=== PATIENT | male | born 1980 | race Caucasian/White ===

== ENCOUNTER 2019-05-04 06:11 | Emergency (ER) | payer BC, OTHER ==
[2019-05-04] MEDS ORDERED: ONDANSETRON 4 MG/2 ML VIAL ONE (06:59)
[2019-05-04] MEDS ORDERED: KETOROLAC 30 MG/ML INJ ONE (06:59)
[2019-05-04] MEDS ORDERED: NA CHLORIDE 0.9% 1,000 ML ONE (06:59)
[2019-05-04 07:01] LABS: Absolute Lymphocytes (CBC) 0.7 K/uL (0.7-4.9); Basophils % 0.3 % (0-1.3); Eosinophils % 0.5 % (0-4.4); Hematocrit 48.3 % (39.6-49.0); Lymphocytes % 4.8 % (15.3-44.8); MPV 8.2 fL (7.6-11.3); Monocytes % 5.2 % (3.3-12.3); RBC Red Blood Cell Count 6.19 M/uL (4.33-5.43)
[2019-05-04 07:13] LABS: Albumin 3.8 g/dL (3.4-5.0); Bilirubin Direct 0.1 mg/dL (0-0.2); Bilirubin Total 0.5 mg/dL (0.2-1.0); Protein, Total 8.1 g/dL (6.4-8.2)
[2019-05-04 08:06] LABS: Platelet Estimate ADEQ
[2019-05-04 08:07] LABS: Blood Morphology Comment NOT SEEN (NOT SEEN)
--- NOTE | 2019-05-04 08:19 | RAD REPORT ---
EXAM DESCRIPTION: CTAbdomen Pelvis W Contrast - 05/04/2019 7:52 am CLINICAL HISTORY: Abdominal pain. ABD PAIN COMPARISON: Abdomen Exam Limited dated 05/04/2019 TECHNIQUE: Biphasic CT imaging of the abdomen and pelvis was performed with 100 ml non-ionic IV cont rast. All CT scans are performed using dose optimization technique as appropriate and may include automated exposure control or mA/KV adjustment according to patient size. FINDINGS: The lung bases are clear. Postsurgical changes are present about the stomach. The liver, spleen, pancreas, adrenal glands and kidneys are within normal limits. No bowel obstruction, free air, free fluid or abscess. The appendix is normal. No evidence of signi ficant lymphadenopathy. No suspicious bony findings. IMPRESSION: No acute intra-abdominal or pelvic finding.
--- NOTE | 2019-05-04 08:25 | ER ---
Nurse's Notes [facility] Name: Eduardo Murcia Age: 38 yrs Sex: Male : 1980 Arrival Date: 05/04/2019 Time: 06:13 Bed 8 Private MD: Lui Harper Diagnosis: Upper abdominal pain, unspecified;Diarrhea, unspecified Presentation: 05/04 06:26 Presenting complaint: Patient states: epigastric pain since 2330 last night with N/D aa1 and chills. Transition of care: patient was not received from another setting of care. Onset of symptoms was May 03, 2019 at 23:30. Risk Assessment: Do you want to hurt yourself or someone else? Patient reports no desire to harm self or others. Initial Sepsis Screen: Does the patient meet any 2 criteria? HR > 90 bpm. Does the patient have a suspected source of infection? Yes: Acute abdominal pain. Care prior to arrival: None. 06:26 Method Of Arrival: Ambulatory aa1 06:26 Acuity: CANDELARIA 3 aa1 Triage Assessment: 06:31 General: Appears in no apparent distress. comfortable, Behavior is calm, cooperative, aa1 appropriate for age. Historical: - Allergies: 06:31 tramadol; aa1 - Home Meds: 06:31 None [Active]; aa1 - PMHx: 06:31 None; aa1 - PSHx: 06:31 gastric sleeve; hand sx; aa1 - Immunization history:: Flu vaccine is not up to date. - Social history:: Smoking status: Patient/guardian denies using tobacco. - Ebola Screening: : No symptoms or risks identified at this time. Screenin:30 Abuse screen: Denies threats or abuse. Nutritional screening: No deficits noted. tl2 Tuberculosis screening: No symptoms or risk factors identified. Fall Risk None identified. Assessment: 06:30 General: Appears in no apparent distress. uncomfortable. General: Reports chills for tl2 0-12 hours. Pain: Complains of pain in right upper quadrant and epigastric area. Neuro: Level of Consciousness is awake, alert, obeys commands, Oriented to person, place, time, situation. Cardiovascular: Denies chest pain. Respiratory: Airway is patent Respiratory effort is even, unlabored, Respiratory pattern is regular, symmetrical. GI: Abd is soft Abdomen is tender to palpation in right upper quadrant and left upper quadrant. : No signs and/or symptoms were reported regarding the genitourinary system. Derm: Skin is pink, warm \T\ dry. 07:36 Reassessment: Patient appears in no apparent distress at this time. Patient and/or hb family updated on plan of care and expected duration. Pain level reassessed. Patient is alert, oriented x 3, equal unlabored respirations, skin warm/dry/pink. Vital Signs: 06:31 BP 114 / 65; Pulse 107; Resp 20; Temp 98.6; Pulse Ox 100% on R/A; Weight 161.48 kg; tl2 Height 5 ft. 10 in. (177.80 cm); Pain 4/10; 07:36 BP 141 / 75; Pulse 85; Resp 17; Pulse Ox 97% on R/A; hb 08:30 BP 119 / 68; Pulse 80; Resp 18; Pulse Ox 98% on R/A; sg 06:31 Body Mass Index 51.08 (161.48 kg, 177.80 cm) tl2 ED Course: 06:13 Patient arrived in ED. am2 06:13 Lui Harper MD is Private Physician. am2 06:21 [facility] Land[facility]C [facility]. kb 06:21 Oracio Bermudez MD is Attending Physician. kb 06:28 Triage completed. aa1 06:30 Patient has correct armband on for positive identification. Bed in low position. Call tl2 light in reach. Side rails up X2. 06:34 Arm band placed on right wrist. aa1 06:42 Inserted saline lock: 22 gauge in right antecubital area, using aseptic technique. tl2 Blood collected. 06:42 Initial lab(s) drawn, by oh, sent to lab. tl2 07:03 US Abdomen Limited In Process Unspecified. EDMS 07:35 Latoya Thomas, RN is Primary Nurse. hb 07:52 CT Abd/Pelvis - IV Contrast Only In Process Unspecified. EDMS 08:35 No provider procedures requiring assistance completed. IV discontinued, intact, sg bleeding controlled, No redness/swelling at site. Pressure dressing applied. Administered Medications: 06:51 Drug: NS 0.9% 1000 ml Route: IV; Rate: 1000 ml; Site: right antecubital; tl2 06:52 Drug: Zofran 4 mg Route: IVP; Site: right antecubital; tl2 06:52 Drug: TORadol 30 mg Route: IVP; Site: right antecubital; tl2 Outcome: 08:22 Discharge ordered by . fab 08:35 Discharged to home ambulatory. sg 08:35 Condition: good 08:35 Discharge instructions given to patient, Instructed on discharge instructions, follow up and referral plans. medication usage, safety practices, Demonstrated understanding of instructions, follow-up care, medications, Prescriptions given X 2. 08:38 Patient left the ED. ss Signatures: Dispatcher [employer] EDMS Angelina Landin, OPERATIONS MGR-C OPERATIONS MGR-Ckb Michael Alcantar RN RN Lona Grimaldo RN RN aa1 Sharona Amor RN RN Latoya Thomas RN RN Jacinda Kumar RN RN tl2 Scarlett Corcoran am2 Corrections: (The following items were deleted from the chart) 06:42 06:31 BP ??? / 99; Pulse 132bpm; Resp 20bpm; Pulse Ox 100% RA; Temp 98.6F; 161.48 kg; tl2 Height 5 ft. 10 in.; BMI: 51.0; Pain 4/10; aa1
--- NOTE | 2019-05-04 08:25 | EDPHYS ---
Physician Documentation [facility] Name: Eduardo Murcia Age: 38 yrs Sex: Male : 1980 Arrival Date: 05/04/2019 Time: 06:13 Bed 8 Private MD: Lui Harper ED Physician Oracio Bermudez HPI: 05/04 06:33 This 38 yrs old Male presents to ER via Ambulatory with complaints of kb Abdominal Pain, CHILLS. 06:33 The patient presents with abdominal pain in the epigastric area. Onset: The kb symptoms/episode began/occurred last night, at 23:00. The symptoms radiate to abdomen. Associated signs and symptoms: Pertinent positives: diarrhea, nausea, Pertinent negatives: anorexia, blood in stools, chest pain, constipation, dysuria, fever, headache, hematuria, palpitations, shortness of breath, testicular pain, vomiting, vomiting blood. The symptoms are described as crampy, sharp, waxing/waning. Modifying factors: The symptoms are alleviated by nothing, the symptoms are aggravated by pressure. Severity of pain: At its worst the pain was moderate in the emergency department the pain has improved mildly. The patient has not experienced similar symptoms in the past. The patient has not recently seen a physician. Pt reports epigastric pain that started at 2300. States the pain has gotten better, but still persistent. Reports nausea, diarrhea and chills. No vomiting. . Historical: - Allergies: 06:31 tramadol; aa1 - Home Meds: 06:31 None [Active]; aa1 - PMHx: 06:31 None; aa1 - PSHx: 06:31 gastric sleeve; hand sx; aa1 - Immunization history:: Flu vaccine is not up to date. - Social history:: Smoking status: Patient/guardian denies using tobacco. - Ebola Screening: : No symptoms or risks identified at this time. ROS: 06:33 ENT: Negative for injury, pain, and discharge, Neck: Negative for injury, pain, and kb swelling, Cardiovascular: Negative for chest pain, palpitations, and edema, Respiratory: Negative for shortness of breath, cough, wheezing, and pleuritic chest pain, Back: Negative for injury and pain, : Negative for injury, bleeding, discharge, and swelling, MS/Extremity: Negative for injury and deformity, Skin: Negative for injury, rash, and discoloration, Neuro: Negative for headache, weakness, numbness, tingling, and seizure. 06:33 Constitutional: Positive for chills, Negative for body aches, fatigue, fever, malaise, poor PO intake, weight loss. 06:33 Abdomen/GI: Positive for abdominal pain, nausea, diarrhea, Negative for vomiting. Exam: 06:35 Constitutional: This is a well developed, well nourished patient who is awake, alert, kb and in no acute distress. Head/Face: Normocephalic, atraumatic. Chest/axilla: Normal chest wall appearance and motion. Nontender with no deformity. No lesions are appreciated. Cardiovascular: Regular rate and rhythm with a normal S1 and S2. No gallops, murmurs, or rubs. Normal PMI, no JVD. No pulse deficits. Respiratory: Lungs have equal breath sounds bilaterally, clear to auscultation and percussion. No rales, rhonchi or wheezes noted. No increased work of breathing, no retractions or nasal flaring. Back: No spinal tenderness. No costovertebral tenderness. Full range of motion. Skin: Warm, dry with normal turgor. Normal color with no rashes, no lesions, and no evidence of cellulitis. MS/ Extremity: Pulses equal, no cyanosis. Neurovascular intact. Full, normal range of motion. Neuro: Awake and alert, GCS 15, oriented to person, place, time, and situation. Cranial nerves II-XII grossly intact. Motor strength 5/5 in all extremities. Sensory grossly intact. Cerebellar exam normal. Normal gait. 06:35 Abdomen/GI: Inspection: obese Bowel sounds: normal, in all quadrants, Palpation: soft, in all quadrants, mild abdominal tenderness, in the right upper quadrant, moderate abdominal tenderness, in the epigastric area. Vital Signs: 06:31 BP 114 / 65; Pulse 107; Resp 20; Temp 98.6; Pulse Ox 100% on R/A; Weight 161.48 kg; tl2 Height 5 ft. 10 in. (177.80 cm); Pain 4/10; 07:36 BP 141 / 75; Pulse 85; Resp 17; Pulse Ox 97% on R/A; hb 08:30 BP 119 / 68; Pulse 80; Resp 18; Pulse Ox 98% on R/A; sg 06:31 Body Mass Index 51.08 (161.48 kg, 177.80 cm) tl2 MDM: 06:21 Patient medically screened. kb 06:35 Data reviewed: vital signs, nurses notes. Data interpreted: Pulse oximetry: on room air kb is 100 %. Interpretation: normal. 08:21 Counseling: I had a detailed discussion with the patient and/or guardian regarding: the kb historical points, exam findings, and any diagnostic results supporting the discharge/admit diagnosis, lab results, radiology results, the need for outpatient follow up, a family practitioner, a chef's assistant, to return to the emergency department if symptoms worsen or persist or if there are any questions or concerns that arise at home. 05/04 06:32 Order name: Basic Metabolic Panel; Complete Time: 07:28 kb 05/04 06:32 Order name: CBC with Diff; Complete Time: 08:11 kb 05/04 06:32 Order name: Hepatic Function; Complete Time: 07:28 kb 05/04 06:32 Order name: Lipase; Complete Time: 07:28 kb 05/04 06:48 Order name: US Abdomen Limited; Complete Time: 08:32 kb 05/04 07:03 Order name: Manual Differential; Complete Time: 08:11 EDMS 05/04 06:32 Order name: IV Saline Lock; Complete Time: 06:41 kb 05/04 06:32 Order name: Labs collected and sent; Complete Time: 06:41 kb 05/04 07:29 Order name: CT Abd/Pelvis - IV Contrast Only; Complete Time: 08:21 kb Administered Medications: 06:51 Drug: NS 0.9% 1000 ml Route: IV; Rate: 1000 ml; Site: right antecubital; tl2 06:52 Drug: Zofran 4 mg Route: IVP; Site: right antecubital; tl2 06:52 Drug: TORadol 30 mg Route: IVP; Site: right antecubital; tl2 Disposition: 09:31 Co-signature as Attending Physician, Oracio Bermudez MD I agree with the assessment and wa plan of care. Disposition: 05/04/19 08:22 Discharged to Home. Impression: Upper abdominal pain, unspecified, Diarrhea, unspecified. - Condition is Stable. - Discharge Instructions: Food Choices to Help Relieve Diarrhea, Adult, Abdominal Pain, Adult, [id number], Diarrhea, Adult, [id number]. - Prescriptions for Bentyl 20 mg Oral Tablet - take 1 tablet by ORAL route every 6 hours As needed; 20 tablet. Zofran 4 mg Oral Tablet - take 1 tablet by ORAL route every 6 hours As needed; 20 tablet. - Medication Reconciliation Form, Thank You Letter, Antibiotic Education, Prescription Opioid Use, Work release form form. - Follow up: Emergency Department; When: As needed; Reason: Worsening of condition. Follow up: Private Physician; When: 2 - 3 days; Reason: Recheck today's complaints, Continuance of care, Re-evaluation by your physician. Signatures: Dispatcher [employer] EDMS Angelina Landin, INDEX EDITOR-C INDEX EDITOR-Lona Pedraza RN RN aa1 Sharona Amor RN RN ss Jacinda Kumar RN RN tl2 Oracio Bermudez MD MD pa Corrections: (The following items were deleted from the chart) 08:38 08:22 05/04/2019 08:22 Discharged to Home. Impression: Upper abdominal pain, ss unspecified; Diarrhea, unspecified. Condition is Stable. Forms are Medication Reconciliation Form, Thank You Letter, Antibiotic Education, Prescription Opioid Use. Follow up: Emergency Department; When: As needed; Reason: Worsening of condition. Follow up: Private Physician; When: 2 - 3 days; Reason: Recheck today's complaints, Continuance of care, Re-evaluation by your physician. kb
--- NOTE | 2019-05-04 08:31 | RAD REPORT ---
EXAM DESCRIPTION: US - Abdomen Exam Limited - 05/04/2019 7:06 am CLINICAL HISTORY: ABD PAIN COMPARISON: No comparisons FINDINGS: The gallbladder demonstrates no gallstones. No pericholecystic fluid or gallbladder wall t hickening. The common bile duct is normal measuring 5 mm. The liver demonstrates no findings of intrahepatic biliary dilatation. IMPRESSION: Unremarkable examination.
== END 2019-05-04 08:38 | disposition home or self-care (01) ==
LOC: ER 06:11
DX: R19.7 Diarrhea, unspecified (principal); Z88.5 Allergy status to narcotic agent
CPT/HCPCS: 36415; 74177; 76705; 80048; 80076; 83690; 85025; 96374; 96375; 99284; J2405; J7030; Q9967